=== PATIENT | male | born 1965 | race Caucasian/White ===

== ENCOUNTER 2021-03-30 16:06 | Emergency (ER) | payer OTHER ==
[2021-03-30] MEDS ORDERED: TETANUS/DIPHTHERIA/PERTUSSIS 0.5 ML SYRINGE IM ONE (16:56)
[2021-03-30] MEDS ORDERED: ceFAZolin 1 GM VIAL IM STA (16:56)
[2021-03-30] MEDS ORDERED: BUFFERED LIDOCAINE 10 ML SYRINGE SUBQ STA (16:57)
[2021-03-30] MEDS ORDERED: BACITRACIN ZINC OINT 1 PACKET TOP STA (17:23)
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
[2021-03-30 17:44] VITALS: BP 176/102
== END 2021-03-30 17:44 | disposition home or self-care (01) ==
LOC: ED 16:06
DX: S81.811A Laceration without foreign body, right lower leg, initial encounter (principal); S80.212A Abrasion, left knee, initial encounter; S80.211A Abrasion, right knee, initial encounter; V18.0XXA Pedal cycle driver injured in noncollision transport accident in nontraffic accident, initial encounter; Y93.55 Activity, bike riding; Y92.410 Unspecified street and highway as the place of occurrence of the external cause; Z23 Encounter for immunization; I10 Essential (primary) hypertension
CPT/HCPCS: 12034; 90471